=== PATIENT | male | born 1975 | race Caucasian/White ===

== ENCOUNTER 2018-04-20 11:46 | Day surgery (SDC) | payer OTHER ==
[2018-04-20] MEDS ORDERED: PROPOFOL 40 ML (13:09)
[2018-04-20] MEDS ORDERED: LIDOCAINE 2% (SDV) 5 ML INJ (13:09)
== END 2018-04-20 14:39 | disposition home or self-care (01) ==
LOC: GIL 11:46
DX: K29.70 Gastritis, unspecified, without bleeding (principal); K21.9 Gastro-esophageal reflux disease without esophagitis; I10 Essential (primary) hypertension; E66.9 Obesity, unspecified; Z68.35 Body mass index [BMI] 35.0-35.9, adult
CPT/HCPCS: 43239; 88305; 88312